=== PATIENT | female | born 1970 | race Caucasian/White ===

== ENCOUNTER 2017-01-10 08:09 | Outpatient (CLI) | payer OTHER ==
[2017-01-10 08:50] LABS: BASOPHILS # (AUTO) 0.1 K/uL (0.00-0.22); BASOPHILS % (AUTO) 1.5 % (0.0-2.0); EOSINOPHILS # (AUTO) 0.1 K/uL (0-0.4); EOSINOPHILS % (AUTO) 2.2 % (0.0-4.0); HEMATOCRIT 39.9 % (36-48); LYMPHOCYTES # (AUTO) 1.5 K/uL (2.5-16.5); LYMPHOCYTES % (AUTO) 26.9 % (20.5-51.1); MEAN CORPUSCULAR HEMOGLOBIN 27 pg (27-31); MEAN CORPUSCULAR HGB CONC 33 g/dL (33-37); MEAN CORPUSCULAR VOLUME 83 fL (80-94); MONOCYTES # (AUTO) 0.4 K/uL (0.8-1.0); MONOCYTES % (AUTO) 8.3 % (1.7-9.3); NEUTROPHILS # (AUTO) 3.3 K/uL (1.8-7.7); NEUTROPHILS % (AUTO) 61.1 % (42.2-75.2); PLATELET COUNT (AUTO) 250 K/uL (140-450); RED BLOOD CELL COUNT(AUTO) 4.81 MIL/uL (4.20-5.40); RED CELL DISTRIBUTION WIDTH 13.6 % (11.6-13.7); WHITE BLOOD COUNT (AUTO) 5.4 K/uL (4.8-10.8)
[2017-01-10 10:03] LABS: APPEARANCE,URINE CLEAR (CLEAR); BILIRUBIN,URINE NEGATIVE (NEGATIVE); BLOOD, URINE NEGATIVE (NEGATIVE); COLOR,URINE YELLOW (YELLOW); LEUKOCYTE ESTERASE ,URINE NEGATIVE (NEGATIVE); NITRITE, URINE NEGATIVE (NEGATIVE); PH,URINE 6.5 (5.0-9.0); PROTEIN,URINE NEGATIVE (NEGATIVE); UGLUCOSE NEGATIVE (NEGATIVE); UROBILINOGEN,URINE 0.2 EU/dL (0.2 - 1)
[2017-01-10 10:10] LABS: ALBUMIN 3.7 g/dL (3.4-5.0); ANION GAP 10.3 (8-16); CALCIUM 8.4 mg/dL (8.5-10.1); CREATININE 0.8 mg/dL (0.6-1.3); POTASSIUM 4.3 mmol/L (3.5-5.1); TOTAL BILIRUBIN 0.4 mg/dL (0.0-1.0); TOTAL PROTEIN, SERUM 7.2 g/dL (6.4-8.2)
[2017-01-10 10:16] LABS: BACTERIA,URINE OCCASSIONAL /HPF (None Seen); RBC,URINE 0-5 (RARE) /HPF (0-5); WBC,URINE 0-5 (RARE) /HPF (0-5)
[2017-01-10 10:17] LABS: SQUAMOUS EPITHELIAL CELL,UR 0-3 (FEW) /LPF (0-3 (FEW))
[2017-01-10 10:24] LABS: FREE T4 (FREE THYROXINE) 0.91 ng/dL (0.76-1.46); THYROID STIMULATING HORMONE 1.5 uIU/mL (0.34-3.76)
[2017-01-11 09:06] LABS: FOLLICLE STIMULATING HORMONE 4.5 mIU/mL (.); LUTEINIZING HORMONE 7.4 mIU/mL (.)
== END 2017-01-10 20:23 | disposition home or self-care (01) ==
LOC: MLB 08:09
PROVIDERS: ATTEND Family Medicine
DX: R05 Cough (principal); R00.2 Palpitations; E78.2 Mixed hyperlipidemia; N95.1 Menopausal and female climacteric states; T78.40XA Allergy, unspecified, initial encounter
CPT/HCPCS: 36415; 70220; 71020; 80053; 81001; 82306; 83001; 83002; 83036; 84439; 84443; 84480; 85025; 86003; 87086

== ENCOUNTER 2017-04-04 09:10 | Outpatient (CLI) | payer OTHER ==
[2017-04-04 09:55] LABS: ALBUMIN 3.5 g/dL (3.4-5.0); ANION GAP 11.6 (8-16); CALCIUM 8.1 mg/dL (8.5-10.1); CARBON DIOXIDE 27.7 mmol/L (21-32); CHOL/HDL RATIO 2.9 (1-4.5); CREATININE 0.9 mg/dL (0.6-1.3); POTASSIUM 4.3 mmol/L (3.5-5.1); TOTAL BILIRUBIN 0.4 mg/dL (0.0-1.0); TOTAL PROTEIN, SERUM 6.9 g/dL (6.4-8.2)
== END 2017-04-04 20:41 | disposition home or self-care (01) ==
LOC: MLB 09:10
PROVIDERS: ATTEND Family Medicine
DX: E78.00 Pure hypercholesterolemia, unspecified (principal)
CPT/HCPCS: 36415; 80053

== ENCOUNTER 2017-04-22 16:03 | Emergency (ER) | payer OTHER ==
[~2017-04-22] VITALS: Ht 154.9 cm; Wt 63.5 kg
[2017-04-22 16:04] VITALS: BP 140/107
[2017-04-22] MEDS ORDERED: CALC600C7 PO (16:10)
[2017-04-22] MEDS ORDERED: METO25TE2 PO (16:10)
[2017-04-22] MEDS ORDERED: SIMV10TA1 PO (16:10)
[2017-04-22 19:06] VITALS: BP 127/75
== END 2017-04-22 19:05 | disposition home or self-care (01) ==
LOC: MED 16:03
DX: R06.02 Shortness of breath (principal); I10 Essential (primary) hypertension; R10.13 Epigastric pain; R11.10 Vomiting, unspecified; Z79.899 Other long term (current) drug therapy
CPT/HCPCS: 81002; 81025; 93005; 99283

== ENCOUNTER 2017-11-05 17:10 | Outpatient (CLI) | payer OTHER ==
[~2017-11-05 17:10] MED LIST: CALC600C PO; METO25TE2 PO; SIMV10TA1 PO
== END 2017-11-05 20:03 | disposition home or self-care (01) ==
LOC: MRD 17:10
PROVIDERS: ATTEND Family Medicine
DX: M77.52 Other enthesopathy of left foot and ankle (principal); M77.51 Other enthesopathy of right foot and ankle
CPT/HCPCS: 73630

== ENCOUNTER 2017-11-06 08:15 | Outpatient (CLI) | payer OTHER ==
[2017-11-06 09:31] LABS: BASOPHILS # (AUTO) 0.2 K/uL (0.00-0.22); BASOPHILS % (AUTO) 2.9 % (0.0-2.0); EOSINOPHILS # (AUTO) 0.1 K/uL (0-0.4); HEMATOCRIT 41.6 % (36-48); LYMPHOCYTES # (AUTO) 1.4 K/uL (2.5-16.5); LYMPHOCYTES % (AUTO) 19.9 % (20.5-51.1); MEAN CORPUSCULAR HEMOGLOBIN 29 pg (27-31); MEAN CORPUSCULAR HGB CONC 34 g/dL (33-37); MEAN CORPUSCULAR VOLUME 84 fL (80-94); MONOCYTES # (AUTO) 0.4 K/uL (0.8-1.0); MONOCYTES % (AUTO) 6.3 % (1.7-9.3); NEUTROPHILS # (AUTO) 4.7 K/uL (1.8-7.7); NEUTROPHILS % (AUTO) 69.9 % (42.2-75.2); PLATELET COUNT (AUTO) 265 K/uL (140-450); RED BLOOD CELL COUNT(AUTO) 4.93 MIL/uL (4.20-5.40); RED CELL DISTRIBUTION WIDTH 12.8 % (11.6-13.7); WHITE BLOOD COUNT (AUTO) 6.8 K/uL (4.8-10.8)
[2017-11-06 09:48] LABS: APPEARANCE,URINE CLEAR (CLEAR); BILIRUBIN,URINE NEGATIVE (NEGATIVE); BLOOD, URINE NEGATIVE (NEGATIVE); COLOR,URINE YELLOW (YELLOW); LEUKOCYTE ESTERASE ,URINE NEGATIVE (NEGATIVE); NITRITE, URINE NEGATIVE (NEGATIVE); UGLUCOSE NEGATIVE (NEGATIVE)
[2017-11-06 09:53] LABS: ANION GAP 11.2 (8-16); CARBON DIOXIDE 28.7 mmol/L (21-32); CHOL/HDL RATIO 3.3 (1-4.5); CREATININE 0.7 mg/dL (0.6-1.3); FREE T4 (FREE THYROXINE) 0.94 ng/dL (0.76-1.46); POTASSIUM 3.9 mmol/L (3.5-5.1); THYROID STIMULATING HORMONE 1.2 uIU/mL (0.34-3.74); TOTAL BILIRUBIN 0.4 mg/dL (0.0-1.0)
== END 2017-11-06 20:47 | disposition home or self-care (01) ==
LOC: MLB 08:15
PROVIDERS: ATTEND Family Medicine
DX: N92.0 Excessive and frequent menstruation with regular cycle (principal); I10 Essential (primary) hypertension; E78.2 Mixed hyperlipidemia; R42 Dizziness and giddiness
CPT/HCPCS: 36415; 76830; 80053; 81003; 82306; 83036; 84439; 84443; 85025; 87086

== ENCOUNTER 2017-11-14 06:58 | Emergency (ER) | payer OTHER ==
[~2017-11-14] VITALS: Ht 154.9 cm; Wt 56.2 kg
[2017-11-14 07:03] VITALS: BP 126/76
--- NOTE | 2017-11-14 07:06 | NUR ---
47/F CAME IN W C/O FEVER, PRODUCTIVE COUGH, CONSTIPATION 6/10 LOWER ABD PAIN RADIATING TO BACK X 2 DAYS. PT REPORTS FEVER OF 101.6 LAST NIGHT, TOOK IBUPROFEN, CURRENTLY AFEBRILE. ALL LUNG SOUNDS CBTA, 16RR EVEN AND UNLABORED. DENIES SOB/CP. BS ACTIVE X 4, ABD SOFT, ROUND,+TENDERNESS TO MID LOWER ABD. REPORTS N/V X1, DENIES HEMATURIA, DYSURIA. PMH: HTN, HLD
--- NOTE | 2017-11-14 07:09 | NUR ---
PT TAKEN TO BED 12. DR. MCCALL EVALUATING PATIENT AT BEDSIDE
--- NOTE | 2017-11-14 07:13 | NUR ---
Pt report given to RODNEY DAUGHERTY. Transfer of care at this time.
--- NOTE | 2017-11-14 07:19 | NUR ---
INFLUENZA A & B COLLECTED AND SENT TO LAB FOR PROCESSING.
[2017-11-14 07:28] VITALS: BP 121/69
--- NOTE | 2017-11-14 07:28 | NUR ---
Patient discharged with v/s stable. Written and verbal after care instructions given and explained. Patient alert, oriented and verbalized understanding of instructions. Ambulatory with steady gait. All questions addressed prior to discharge. ID band removed. Patient advised to follow up with PMD. Rx of ZOFRAN, TAMIFLU, TESSALON given. Patient educated on indication of medication including possible reaction and side effects. Opportunity to ask questions provided and answered.
== END 2017-11-14 07:28 | disposition home or self-care (01) ==
LOC: MED 06:58
DX: B34.9 Viral infection, unspecified (principal); I10 Essential (primary) hypertension; E78.5 Hyperlipidemia, unspecified; Z79.899 Other long term (current) drug therapy
CPT/HCPCS: 36415; 87804; 99284

== ENCOUNTER 2017-11-19 10:40 | Outpatient (CLI) | payer OTHER | END 2017-11-19 18:40 | disposition home or self-care (01) | LOC: MRD 10:40 | PROVIDERS: ATTEND Family Medicine | DX: G62.9 Polyneuropathy, unspecified (principal) | CPT/HCPCS: 72110 ==

== ENCOUNTER 2017-11-27 08:28 | Outpatient (CLI) | payer OTHER | END 2017-11-27 20:55 | disposition home or self-care (01) | LOC: MLB 08:28 → MRD 20:55 | PROVIDERS: ATTEND Family Medicine | DX: M25.552 Pain in left hip (principal); M25.551 Pain in right hip; R10.9 Unspecified abdominal pain | CPT/HCPCS: 76700 ==

== ENCOUNTER 2018-06-08 15:30 | Emergency (ER) | payer OTHER ==
[~2018-06-08] VITALS: Ht 154.9 cm; Wt 70.8 kg
[2018-06-08 15:33] VITALS: BP 117/59
--- NOTE | 2018-06-08 15:42 | NUR ---
PT AMBULATES TO BED 6
--- NOTE | 2018-06-08 15:49 | NUR ---
48 YO F BIB SELF W/ C/O MEDIAL ABD PAIN RADIATING TO LEFT ABD 10/10 W/ N/V X YESTERDAY. PT REPORTS THAT THE PAIN IS WORSE TODAY. TOOK IBUPROFEN W/ SOME RELIEF. ABD SOFT. BOWEL SOUNDS ACTIVE X 4. DENIES DIARRHEA/CONSTIPATION. DENIES FEVER. DENIES DYSURIA. HX GASTRITIS, HTN, HIGH CHOLESTROL RX FAMOTIDINE, ON FILE
[2018-06-08] MEDS ORDERED: ONDANSETRON 4 MG ODT PO ONE (16:30)
[2018-06-08] MEDS ORDERED: KETOROLAC 60 MG/2 ML VIAL IM ONE (16:30)
--- NOTE | 2018-06-08 16:30 | NUR ---
lab at bedside
[2018-06-08 16:54] LABS: APPEARANCE,URINE SL CLOUDY (CLEAR); BILIRUBIN,URINE NEGATIVE (NEGATIVE); BLOOD, URINE NEGATIVE (NEGATIVE); COLOR,URINE YELLOW (YELLOW); LEUKOCYTE ESTERASE ,URINE NEGATIVE (NEGATIVE); NITRITE, URINE NEGATIVE (NEGATIVE); UGLUCOSE NEGATIVE (NEGATIVE)
--- NOTE | 2018-06-08 17:00 | NUR ---
us at bedside
--- NOTE | 2018-06-08 17:58 | NUR ---
pt resting in no appearent distress
[2018-06-08 19:02] VITALS: BP 115/62
== END 2018-06-08 19:03 | disposition home or self-care (01) ==
LOC: MED 15:30
DX: R10.32 Left lower quadrant pain (principal); R11.10 Vomiting, unspecified; E78.5 Hyperlipidemia, unspecified; I10 Essential (primary) hypertension; Z79.899 Other long term (current) drug therapy
CPT/HCPCS: 76830; 81003; 81025; 93976; 96372; 99285; J1885; Q0092; S0119; 81002

== ENCOUNTER 2018-06-09 15:04 | Emergency (ER) | payer OTHER ==
[~2018-06-09] VITALS: Ht 154.9 cm; Wt 60.1 kg
[2018-06-09 15:10] VITALS: BP 147/107
--- NOTE | 2018-06-09 15:35 | NUR ---
PATIENT C/O GENERALIZED ABDOMINAL PAIN , DIARRHEA X 3 DAYS. DENIES N/V/D. SEEN HERE YESTERDAY SAME S/S. PATIENT STATES PAIN OF 10/10 AT THIS TIME; VSS; PATIENT POSITIONED FOR COMFORT; HOB ELEVATED; BEDRAILS UP X2; BED DOWN. ER MD MADE AWARE OF PT STATUS.
[2018-06-09] MEDS ORDERED: NACL 0.9% 1,000 ML IV ONE (16:10)
[2018-06-09] MEDS ORDERED: ONDANSETRON 4 MG/2 ML VIAL IVP ONE (16:10)
[2018-06-09] MEDS ORDERED: PANTOPRAZOLE 40 MG INJ VIAL IVP ONE (16:10)
[2018-06-09] MEDS ORDERED: KETOROLAC 30 MG/ML VIAL IVP ONE (16:10)
[2018-06-09 16:50] LABS: BASOPHILS % (AUTO) 0.3 % (0.0-2.0); EOSINOPHILS % (AUTO) 0.3 % (0.0-4.0); HEMOGLOBIN 12.5 g/dL (12.0-16.0); LYMPHOCYTES # (AUTO) 1.3 K/uL (2.5-16.5); LYMPHOCYTES % (AUTO) 9.8 % (20.5-51.1); MEAN CORPUSCULAR HEMOGLOBIN 28 pg (27-31); MEAN CORPUSCULAR HGB CONC 33 g/dL (33-37); MEAN CORPUSCULAR VOLUME 83.8 fL (80-94); MONOCYTES # (AUTO) 0.9 K/uL (0.8-1.0); MONOCYTES % (AUTO) 6.9 % (1.7-9.3); NEUTROPHILS # (AUTO) 10.8 K/uL (1.8-7.7); NEUTROPHILS % (AUTO) 82.7 % (42.2-75.2); PLATELET COUNT (AUTO) 235 K/uL (140-450); RED BLOOD CELL COUNT(AUTO) 4.53 MIL/uL (4.20-5.40); RED CELL DISTRIBUTION WIDTH 15.3 % (11.6-13.7)
[2018-06-09 17:16] LABS: ANION GAP 12.2 (8-16); CARBON DIOXIDE 26.6 mmol/L (21-32); POTASSIUM 3.8 mmol/L (3.5-5.1); TOTAL BILIRUBIN 0.3 mg/dL (0.0-1.0)
[2018-06-09 17:17] LABS: ALBUMIN 3.8 g/dL (3.4-5.0)
[2018-06-09 18:32] VITALS: BP 147/107
[2018-06-09 18:38] LABS: BILIRUBIN,URINE NEGATIVE (NEGATIVE); BLOOD, URINE NEGATIVE (NEGATIVE); LEUKOCYTE ESTERASE ,URINE NEGATIVE (NEGATIVE); NITRITE, URINE NEGATIVE (NEGATIVE); UGLUCOSE NEGATIVE (NEGATIVE)
[2018-06-09 18:41] LABS: APPEARANCE,URINE CLEAR (CLEAR); COLOR,URINE STRAW (YELLOW)
== END 2018-06-09 18:33 | disposition home or self-care (01) ==
LOC: MED 15:04
DX: N83.202 Unspecified ovarian cyst, left side (principal); E78.5 Hyperlipidemia, unspecified; K21.9 Gastro-esophageal reflux disease without esophagitis; I10 Essential (primary) hypertension; Z79.899 Other long term (current) drug therapy
CPT/HCPCS: 36415; 74176; 80053; 81003; 81025; 83690; 85025; 87086; 96374; 96375; 99285; C9113; J1885; J2405; J7030

== ENCOUNTER 2018-09-04 07:51 | Outpatient (CLI) | payer OTHER ==
[2018-09-04 09:59] LABS: POTASSIUM 4.1 mmol/L (3.5-5.1)
[2018-09-04 10:00] LABS: ALBUMIN 3.5 g/dL (3.4-5.0); CARBON DIOXIDE 27.1 mmol/L (21-32); CREATININE 0.8 mg/dL (0.6-1.3); TOTAL BILIRUBIN 0.3 mg/dL (0.0-1.0)
[2018-09-04 11:33] LABS: CHOL/HDL RATIO 6.4 (1-4.5)
== END 2018-09-04 20:37 | disposition home or self-care (01) ==
LOC: MLB 07:51
PROVIDERS: ATTEND Family Medicine
DX: R94.4 Abnormal results of kidney function studies (principal); E78.5 Hyperlipidemia, unspecified; K21.9 Gastro-esophageal reflux disease without esophagitis; I10 Essential (primary) hypertension; Z83.3 Family history of diabetes mellitus
CPT/HCPCS: 36415; 80053; 82306; 83036

== ENCOUNTER 2018-11-13 09:21 | Outpatient (CLI) | payer OTHER ==
[2018-11-13 09:47] LABS: BASOPHILS % (AUTO) 0.7 % (0.0-2.0); EOSINOPHILS # (AUTO) 0.1 K/uL (0-0.4); EOSINOPHILS % (AUTO) 1.3 % (0.0-4.0); HEMATOCRIT 41.6 % (36-48); HEMOGLOBIN 13.8 g/dL (12.0-16.0); LYMPHOCYTES # (AUTO) 1.4 K/uL (2.5-16.5); MEAN CORPUSCULAR HEMOGLOBIN 28 pg (27-31); MEAN CORPUSCULAR HGB CONC 33 g/dL (33-37); MEAN CORPUSCULAR VOLUME 84.6 fL (80-94); MONOCYTES # (AUTO) 0.3 K/uL (0.8-1.0); MONOCYTES % (AUTO) 6.1 % (1.7-9.3); NEUTROPHILS # (AUTO) 3.7 K/uL (1.8-7.7); NEUTROPHILS % (AUTO) 66.9 % (42.2-75.2); PLATELET COUNT (AUTO) 237 K/uL (140-450); RED BLOOD CELL COUNT(AUTO) 4.92 MIL/uL (4.20-5.40); RED CELL DISTRIBUTION WIDTH 14.4 % (11.6-13.7); WHITE BLOOD COUNT (AUTO) 5.6 K/uL (4.8-10.8)
[2018-11-13 10:02] LABS: ALBUMIN 3.9 g/dL (3.4-5.0); ANION GAP 11.9 (8-16); CREATININE 0.8 mg/dL (0.6-1.3); POTASSIUM 3.9 mmol/L (3.5-5.1); TOTAL BILIRUBIN 0.4 mg/dL (0.0-1.0)
== END 2018-11-13 20:35 | disposition home or self-care (01) ==
LOC: MLB 09:21
DX: N89.8 Other specified noninflammatory disorders of vagina (principal); R68.89 Other general symptoms and signs; R79.89 Other specified abnormal findings of blood chemistry
CPT/HCPCS: 36415; 76830; 80053; 85025; Q0092

== ENCOUNTER 2019-02-11 12:52 | Outpatient (CLI) | payer OTHER | END 2019-02-11 21:15 | disposition home or self-care (01) | LOC: MLB 12:52 | PROVIDERS: ATTEND Preventive Medicine Preventive Medicine/Occupational Environmental Medicine | DX: B05.9 Measles without complication (principal) | CPT/HCPCS: 36415; 86765 ==

== ENCOUNTER 2019-05-07 08:19 | Outpatient (CLI) | payer OTHER ==
[2019-05-07 09:23] LABS: ALBUMIN 3.7 g/dL (3.4-5.0); ANION GAP 11.3 (8-16); CARBON DIOXIDE 27.7 mmol/L (21-32); CREATININE 0.8 mg/dL (0.6-1.3); FREE T4 (FREE THYROXINE) 0.96 ng/dL (0.76-1.46); MAGNESIUM 1.8 mg/dL (1.8-2.4); PHOSPHORUS 3.3 mg/dL (2.5-4.9); TOTAL BILIRUBIN 0.5 mg/dL (0.0-1.0)
== END 2019-05-07 20:44 | disposition home or self-care (01) ==
LOC: MLB 08:19
PROVIDERS: ATTEND Preventive Medicine Preventive Medicine/Occupational Environmental Medicine
DX: E78.5 Hyperlipidemia, unspecified (principal)
CPT/HCPCS: 36415; 80053; 82306; 83735; 84100; 84439; 84481

== ENCOUNTER 2019-06-04 09:05 | Outpatient (CLI) | payer OTHER ==
[2019-06-04 11:28] LABS: CHOL/HDL RATIO 5.9 (1-4.5)
== END 2019-06-04 20:32 | disposition home or self-care (01) ==
LOC: MLB 09:05
PROVIDERS: ATTEND Preventive Medicine Preventive Medicine/Occupational Environmental Medicine
DX: E78.5 Hyperlipidemia, unspecified (principal); M54.9 Dorsalgia, unspecified
CPT/HCPCS: 36415

== ENCOUNTER 2019-06-06 17:06 | Outpatient (CLI) | payer OTHER | END 2019-06-06 19:33 | disposition home or self-care (01) | LOC: MUS 17:06 | PROVIDERS: ATTEND Preventive Medicine Preventive Medicine/Occupational Environmental Medicine | DX: M51.37 Other intervertebral disc degeneration, lumbosacral region (principal); M48.07 Spinal stenosis, lumbosacral region; N63.10 Unspecified lump in the right breast, unspecified quadrant; M43.8X6 Other specified deforming dorsopathies, lumbar region | CPT/HCPCS: 72114; 76641; Q0092 ==

== ENCOUNTER 2019-11-12 08:03 | Outpatient (CLI) | payer OTHER ==
[2019-11-12 09:23] LABS: ALBUMIN 3.7 g/dL (3.4-5.0); CARBON DIOXIDE 30.4 mmol/L (21-32); CHOL/HDL RATIO 5.7 (1-4.5); CREATININE 0.8 mg/dL (0.6-1.3); POTASSIUM 4.4 mmol/L (3.5-5.1); TOTAL BILIRUBIN 0.3 mg/dL (0.0-1.0)
== END 2019-11-12 21:10 | disposition home or self-care (01) ==
LOC: MLB 08:03
PROVIDERS: ATTEND Preventive Medicine Preventive Medicine/Occupational Environmental Medicine
DX: I10 Essential (primary) hypertension (principal); E78.5 Hyperlipidemia, unspecified
CPT/HCPCS: 36415; 80053

== ENCOUNTER 2020-06-08 09:47 | Outpatient (CLI) | payer OTHER ==
[2020-06-08 11:56] LABS: APPEARANCE,URINE YELLOW (CLEAR); COLOR,URINE CLEAR (YELLOW)
[2020-06-08 11:57] LABS: BILIRUBIN,URINE NEGATIVE (NEGATIVE); BLOOD, URINE NEG (NEGATIVE); LEUKOCYTE ESTERASE ,URINE NEGATIVE (NEGATIVE); NITRITE, URINE NEGATIVE (NEGATIVE); PH,URINE 7.8 (5.0-9.0); UGLUCOSE NEG (NEGATIVE)
[2020-06-08 15:05] LABS: ALBUMIN 3.9 g/dL (3.4-5.0); ANION GAP 10.9 (8-16); CARBON DIOXIDE 27.5 mmol/L (21-32); CREATININE 0.8 mg/dL (0.6-1.3); POTASSIUM 4.4 mmol/L (3.5-5.1); TOTAL BILIRUBIN 0.3 mg/dL (0.0-1.0)
== END 2020-06-08 20:45 | disposition home or self-care (01) ==
LOC: MLB 09:47
PROVIDERS: ATTEND Preventive Medicine Preventive Medicine/Occupational Environmental Medicine
DX: I10 Essential (primary) hypertension (principal); E78.5 Hyperlipidemia, unspecified
CPT/HCPCS: 36415; 80053; 81003; 82272; 82306; 82570; 83036

== ENCOUNTER 2020-06-30 08:07 | Outpatient (CLI) | payer OTHER ==
[~2020-06-30 08:07] MED LIST changes: -CALC600C PO; +CALC600T53 PO
[2020-06-30 09:39] LABS: CHOL/HDL RATIO 5.5 (1-4.5)
== END 2020-06-30 20:07 | disposition home or self-care (01) ==
LOC: MLB 08:07
PROVIDERS: ATTEND Preventive Medicine Preventive Medicine/Occupational Environmental Medicine
DX: E78.5 Hyperlipidemia, unspecified (principal)
CPT/HCPCS: 36415

== ENCOUNTER 2021-01-09 15:13 | Outpatient (CLI) | payer OTHER | END 2021-01-09 19:10 | disposition home or self-care (01) | LOC: MUS 15:13 | PROVIDERS: ATTEND Internal Medicine Cardiovascular Disease | DX: R10.2 Pelvic and perineal pain (principal); Z87.42 Personal history of other diseases of the female genital tract | CPT/HCPCS: 76830 ==

== ENCOUNTER 2021-01-11 07:48 | Outpatient (CLI) | payer OTHER ==
[2021-01-11 08:20] LABS: BASOPHILS % (AUTO) 0.6 % (0.0-2.0); EOSINOPHILS # (AUTO) 0.1 K/uL (0-0.4); EOSINOPHILS % (AUTO) 1.1 % (0.0-4.0); HEMATOCRIT 36.2 % (36-48); HEMOGLOBIN 11.6 g/dL (12.0-16.0); LYMPHOCYTES # (AUTO) 1.7 K/uL (2.5-16.5); LYMPHOCYTES % (AUTO) 26.9 % (20.5-51.1); MEAN CORPUSCULAR HEMOGLOBIN 26 pg (27-31); MEAN CORPUSCULAR HGB CONC 32 g/dL (33-37); MEAN CORPUSCULAR VOLUME 80.3 fL (80-94); MONOCYTES # (AUTO) 0.4 K/uL (0.8-1.0); MONOCYTES % (AUTO) 6.3 % (1.7-9.3); NEUTROPHILS # (AUTO) 4.1 K/uL (1.8-7.7); NEUTROPHILS % (AUTO) 65.1 % (42.2-75.2); PLATELET COUNT (AUTO) 286 K/uL (140-450); RED BLOOD CELL COUNT(AUTO) 4.51 MIL/uL (4.20-5.40); RED CELL DISTRIBUTION WIDTH 14.5 % (11.6-13.7); WHITE BLOOD COUNT (AUTO) 6.2 K/uL (4.8-10.8)
[2021-01-11 08:24] LABS: APPEARANCE,URINE CLEAR (CLEAR); BILIRUBIN,URINE NEGATIVE (NEGATIVE); BLOOD, URINE TRACE-I (NEGATIVE); COLOR,URINE YELLOW (YELLOW); LEUKOCYTE ESTERASE ,URINE NEGATIVE (NEGATIVE); NITRITE, URINE NEGATIVE (NEGATIVE); UGLUCOSE NEGATIVE (NEGATIVE)
[2021-01-11 08:47] LABS: ALBUMIN 3.8 g/dL (3.4-5.0); ANION GAP 9.5 (8-16); CARBON DIOXIDE 26.5 mmol/L (21-32); CHOL/HDL RATIO 4.6 (1-4.5); CREATININE 0.8 mg/dL (0.6-1.3); THYROID STIMULATING HORMONE 0.98 uIU/mL (0.34-3.74); TOTAL BILIRUBIN 0.4 mg/dL (0.0-1.0)
[2021-01-11 09:37] LABS: RBC,URINE 0-5 /HPF (0-5); WBC,URINE 0-5 /HPF (0-5)
[2021-01-12 07:08] LABS: T4 FREE (DIRECT) 1.02 ng/dL (0.82-1.77)
== END 2021-01-11 17:59 | disposition home or self-care (01) ==
LOC: MLB 07:48
PROVIDERS: ATTEND Internal Medicine Cardiovascular Disease
DX: Z00.00 Encounter for general adult medical examination without abnormal findings (principal); E78.5 Hyperlipidemia, unspecified
CPT/HCPCS: 36415; 80053; 81001; 82043; 82306; 82570; 84439; 84443; 85025

== ENCOUNTER 2021-03-24 10:20 | Emergency (ER) | payer OTHER ==
[~2021-03-24] VITALS: Ht 154.9 cm; Wt 60.8 kg
[2021-03-24 10:21] VITALS: BP 117/36
--- NOTE | 2021-03-24 10:29 | NUR ---
PATIENT AMBULATED TO BED 3. HANDED ON URINE CUP.
--- NOTE | 2021-03-24 10:38 | NUR ---
50 YEAR OLD FEMALE COMPLAINS OF LOWER BACK PAIN X 1 WEEK. PT STATES THAT SHE WOKE UP WITH PAIN AND HAS BEEN PERSISTING SINCE. PT STATES SHE FEELS THOUGH RETAINING URINE, HAS NOT BEEN ABLE TO URINATE TOO MUCH PAST 3 DAYS WITH SUPRAPUBIC TENDERNESS. PT ALSO COMPLAINS OF NAUSEA STARTING TODAY. PT AOX4, BREATHING EVEN AND UNLABORED, SKIN WARM AND DRY. BED IN LOWEST POSITION, LOCKED, BED RAIL UPX1. PMH - DENIES ALLERGIES - NKA
[2021-03-24] MEDS ORDERED: ONDANSETRON 4 MG/2 ML VIAL IVP ONE (11:10)
[2021-03-24] MEDS ORDERED: KETOROLAC 30 MG/ML VIAL IVP ONE (11:10)
[2021-03-24] MEDS ORDERED: KETOROLAC 15 MG/ML VIAL ONE (11:20)
[2021-03-24] MEDS ORDERED: KETOROLAC 15 MG/ML VIAL IVP ONE (11:20)
[2021-03-24 11:24] LABS: BASOPHILS # (AUTO) 0.1 K/uL (0.00-0.22); BASOPHILS % (AUTO) 0.9 % (0.0-2.0); EOSINOPHILS # (AUTO) 0.1 K/uL (0-0.4); EOSINOPHILS % (AUTO) 1.1 % (0.0-4.0); HEMATOCRIT 35.1 % (36-48); HEMOGLOBIN 11.4 g/dL (12.0-16.0); LYMPHOCYTES # (AUTO) 1.7 K/uL (2.5-16.5); LYMPHOCYTES % (AUTO) 25.1 % (20.5-51.1); MEAN CORPUSCULAR HEMOGLOBIN 26 pg (27-31); MEAN CORPUSCULAR HGB CONC 32 g/dL (33-37); MEAN CORPUSCULAR VOLUME 79.4 fL (80-94); MONOCYTES # (AUTO) 0.4 K/uL (0.8-1.0); MONOCYTES % (AUTO) 6.6 % (1.7-9.3); NEUTROPHILS # (AUTO) 4.4 K/uL (1.8-7.7); NEUTROPHILS % (AUTO) 66.3 % (42.2-75.2); PLATELET COUNT (AUTO) 303 K/uL (140-450); RED BLOOD CELL COUNT(AUTO) 4.43 MIL/uL (4.20-5.40); RED CELL DISTRIBUTION WIDTH 14.8 % (11.6-13.7); WHITE BLOOD COUNT (AUTO) 6.6 K/uL (4.8-10.8)
[2021-03-24 11:27] LABS: APPEARANCE,URINE CLEAR (CLEAR); BILIRUBIN,URINE NEGATIVE (NEGATIVE); BLOOD, URINE TRACE-I (NEGATIVE); COLOR,URINE YELLOW (YELLOW); LEUKOCYTE ESTERASE ,URINE NEGATIVE (NEGATIVE); NITRITE, URINE NEGATIVE (NEGATIVE); UGLUCOSE NEGATIVE (NEGATIVE)
[2021-03-24 11:32] LABS: RBC,URINE 0-5 /HPF (0-5); WBC,URINE 0-5 /HPF (0-5)
[2021-03-24 11:55] LABS: ANION GAP 13.5 (8-16); CARBON DIOXIDE 26.4 mmol/L (21-32); CREATININE 0.8 mg/dL (0.6-1.3); POTASSIUM 3.9 mmol/L (3.5-5.1); TOTAL BILIRUBIN 0.2 mg/dL (0.0-1.0)
--- NOTE | 2021-03-24 12:00 | NUR ---
PT ALERT AND AWAKE, BREATHING EVEN AND UNLABORED. NO DISTRESS NOTED. ALL NEEDS MET AT THIS TIME WILL CONTINUE TO MONITOR.
[2021-03-24] MEDS ORDERED: ACET-8386 PO ×2 (13:19→13:37)
[2021-03-24] MEDS ORDERED: NAPR-54 PO ×2 (13:19→13:37)
--- NOTE | 2021-03-24 13:30 | NUR ---
Patient discharged with v/s stable. Written and verbal after care instructions about flank pain given and explained. Patient alert, oriented and verbalized understanding of instructions. Ambulatory with steady gait. All questions addressed prior to discharge. ID band removed. Patient advised to follow up with PMD. Rx of naprosyn, norco given. Patient educated on indication of medication including possible reaction and side effects. Opportunity to ask questions provided and answered.
[2021-03-24 13:31] VITALS: BP 115/40
== END 2021-03-24 13:30 | disposition home or self-care (01) ==
LOC: MED 10:20
DX: R10.30 Lower abdominal pain, unspecified (principal); E11.9 Type 2 diabetes mellitus without complications; I11.9 Hypertensive heart disease without heart failure; K21.9 Gastro-esophageal reflux disease without esophagitis; E78.00 Pure hypercholesterolemia, unspecified; Z79.899 Other long term (current) drug therapy
CPT/HCPCS: 36415; 74176; 80053; 81001; 81025; 83690; 85025; 96374; 96375; 99284; J1885; J2405

== ENCOUNTER → 2021-07-26 | Outpatient (CLI) | payer OTHER ==
[~2021-07-26] MED LIST changes: +ACET-8386 PO; +NAPR-54 PO
[2021-07-26 09:44] LABS: BASOPHILS % (AUTO) 0.7 % (0.0-2.0); EOSINOPHILS % (AUTO) 0.9 % (0.0-4.0); HEMATOCRIT 38.2 % (36-48); HEMOGLOBIN 12.6 g/dL (12.0-16.0); LYMPHOCYTES # (AUTO) 1.4 K/uL (2.5-16.5); LYMPHOCYTES % (AUTO) 25.8 % (20.5-51.1); MEAN CORPUSCULAR HEMOGLOBIN 26 pg (27-31); MEAN CORPUSCULAR HGB CONC 33 g/dL (33-37); MEAN CORPUSCULAR VOLUME 80.2 fL (80-94); MONOCYTES # (AUTO) 0.3 K/uL (0.8-1.0); NEUTROPHILS # (AUTO) 3.6 K/uL (1.8-7.7); NEUTROPHILS % (AUTO) 66.6 % (42.2-75.2); PLATELET COUNT (AUTO) 299 K/uL (140-450); RED BLOOD CELL COUNT(AUTO) 4.77 MIL/uL (4.20-5.40); RED CELL DISTRIBUTION WIDTH 16.6 % (11.6-13.7); WHITE BLOOD COUNT (AUTO) 5.4 K/uL (4.8-10.8)
[2021-07-26 10:07] LABS: ALBUMIN 3.8 g/dL (3.4-5.0); ANION GAP 8.6 (8-16); CARBON DIOXIDE 29.7 mmol/L (21-32); CHOL/HDL RATIO 4.7 (1-4.5); CREATININE 0.8 mg/dL (0.6-1.3); POTASSIUM 4.3 mmol/L (3.5-5.1); TOTAL BILIRUBIN 0.3 mg/dL (0.0-1.0)
== END | disposition home or self-care (01) ==
LOC: MLB 09:13
PROVIDERS: ATTEND Physician Assistant Medical
DX: E78.5 Hyperlipidemia, unspecified (principal); R53.83 Other fatigue; D64.9 Anemia, unspecified; N18.2 Chronic kidney disease, stage 2 (mild); N76.1 Subacute and chronic vaginitis
CPT/HCPCS: 36415; 80053; 82728; 83036; 85025

== ENCOUNTER 2021-11-22 10:46 | Outpatient (CLI) | payer OTHER ==
[2021-11-22 11:45] LABS: ANION GAP 7.4 (8-16); CARBON DIOXIDE 32.4 mmol/L (21-32); CREATININE 0.7 mg/dL (0.6-1.3); POTASSIUM 3.8 mmol/L (3.5-5.1)
== END 2021-11-22 20:06 | disposition home or self-care (01) ==
LOC: MLB 10:46
PROVIDERS: ATTEND Physician Assistant Medical
DX: Z01.818 Encounter for other preprocedural examination (principal)
CPT/HCPCS: 36415; 80048